=== PATIENT | female | born 1955 | race Caucasian/White ===

== ENCOUNTER 2020-04-16 10:10 | Emergency (ER) | payer MEDICARE, OTHER ==
[~2020-04-16] VITALS: Ht 157.5 cm; Wt 44.5 kg
[2020-04-16] MEDS ORDERED: SODIUM CHLORIDE FLUSH 10ML SYR IVF ONE (10:30)
[2020-04-16 10:44] LABS: BASOPHILS % (AUTO) 1 % (0-1); EOSINOPHILS % (AUTO) 1 % (1-7); LYMPHOCYTES % (AUTO) 23 % (22-44); MEAN CORPUSCULAR HEMOGLOBIN 37.9 pg (27.0-34.8); MEAN CORPUSCULAR HGB CONC 33.7 g/dL (32.4-35.8); MEAN PLATELET VOLUME 7.4 fL (7.4-10.4); MONOCYTES % (AUTO) 12 % (2-9); NEUTROPHILS % (AUTO) 64 % (42-75); PLATELET COUNT 222 x10^3/uL (130-400); RED BLOOD COUNT 3.72 x10^6/uL (3.82-5.3); RED CELL DISTRIBUTION WIDTH 15.8 % (9.6-15.2)
[2020-04-16 10:45] LABS: MD NO
[2020-04-16 10:50] LABS: ALANINE AMINOTRANSFERASE 21 U/L (12-78); ANION GAP 7 mmol/L (5-15); CALCIUM 8.8 mg/dL (8.5-10.1); CHLORIDE 110 mmol/L (98-107); CREATININE 0.55 mg/dL (0.55-1.02)
[2020-04-16 10:53] LABS: ALKALINE PHOSPHATASE 105 U/L (45-117); BILIRUBIN,TOTAL 0.5 mg/dL (0.2-1.0); TOTAL PROTEIN 6.7 g/dL (6.4-8.2)
[2020-04-16] MEDS ORDERED: OMNIPAQUE 350 MG/ML, 100ML BOTTLE ONE (11:38)
[2020-04-16 12:24] VITALS: BP 125/77
[2020-04-16 12:58] LABS: MICROSCOPIC NOT IND
== END 2020-04-16 13:50 | disposition home or self-care (01) ==
LOC: ED 10:35
DX: R10.30 Lower abdominal pain, unspecified (principal); K59.00 Constipation, unspecified
CPT/HCPCS: 36415; 74177; 80053; 81003; 85025; 99285; Q9967

== ENCOUNTER 2020-09-11 11:16 | Outpatient (CLI) | payer MEDICARE ==
[2020-09-11 12:37] LABS: BASOPHILS % (AUTO) 0 % (0-1); EOSINOPHILS % (AUTO) 0 % (1-7); LYMPHOCYTES % (AUTO) 9 % (22-44); MEAN CORPUSCULAR HEMOGLOBIN 34.6 pg (27.0-34.8); MEAN CORPUSCULAR HGB CONC 34.2 g/dL (32.4-35.8); MEAN PLATELET VOLUME 7.1 fL (7.4-10.4); MONOCYTES % (AUTO) 5 % (2-9); NEUTROPHILS % (AUTO) 86 % (42-75); PLATELET COUNT 169 x10^3/uL (130-400); RED BLOOD COUNT 4.39 x10^6/uL (3.82-5.3); RED CELL DISTRIBUTION WIDTH 15.1 % (9.6-15.2)
[2020-09-11 12:38] LABS: MD NO
[2020-09-11 12:46] LABS: ANION GAP 8 mmol/L (5-15); CALCIUM 8.8 mg/dL (8.5-10.1); CHLORIDE 104 mmol/L (98-107); CREATININE 0.48 mg/dL (0.55-1.02)
[2020-09-11 12:52] LABS: INTERNATIONAL NORMALIZED RATIO 1.03 (0.93-1.1)
[2020-09-11] MEDS ORDERED: ESZO2TAB22 PO (12:52)
[2020-09-11] MEDS ORDERED: GABA600T7 PO (12:52)
[2020-09-11] MEDS ORDERED: LEVO50TA5 PO (12:52)
[2020-09-11 12:53] LABS: PARTIAL THROMBOPLASTIN TIME < 23 Seconds (25-31)
== END 2020-09-11 23:59 | disposition home or self-care (01) ==
LOC: STAR 11:16
PROVIDERS: ATTEND Neurological Surgery
DX: Z01.812 Encounter for preprocedural laboratory examination (principal); Z20.822 Contact with and (suspected) exposure to COVID-19; M48.062 Spinal stenosis, lumbar region with neurogenic claudication; I45.10 Unspecified right bundle-branch block
CPT/HCPCS: 36415; 71046; 80048; 85025; 85610; 85730; 93005; U0003

== ENCOUNTER 2020-09-16 07:54 | Emergency (ER) | payer MEDICARE ==
[~2020-09-16] VITALS: Ht 157.5 cm; Wt 55.5 kg
[~2020-09-16 07:54] MED LIST changes: -ADENOSINE 6 MG/2 ML ONE; -DILTIAZEM 5 MG/ML, 5ML ONE
--- NOTE | 2020-09-16 07:54 | NUR ---
MD Jimenez at bedside for eval. HR 184. EKG Done. Pt denies complaint.
[2020-09-16] MEDS ORDERED: ADENOSINE 6 MG/2 ML ONE (07:58)
--- NOTE | 2020-09-16 07:59 | NUR ---
6mg adenosine given
[2020-09-16] MEDS ORDERED: SODIUM CHLORIDE FLUSH 10ML SYR IVF ONE (08:30)
[2020-09-16] MEDS ORDERED: LORazepam 2 MG/ML, 1ML IVPush ONE ×2 (08:30→09:00)
[2020-09-16] MEDS ORDERED: LORazepam 2 MG/ML, 1ML ONE ×3 (08:30→08:50)
[2020-09-16] MEDS ORDERED: ADENOSINE 6 MG/2 ML IVPush ONE (08:30)
[2020-09-16] MEDS ORDERED: PLEASE ENTER HEIGHT AND WEIGHT MC SCH (08:30)
[2020-09-16 08:49] LABS: BASOPHILS % (AUTO) 0 % (0-1); EOSINOPHILS % (AUTO) 1 % (1-7); LYMPHOCYTES % (AUTO) 11 % (22-44); MEAN CORPUSCULAR HEMOGLOBIN 34.3 pg (27.0-34.8); MEAN CORPUSCULAR HGB CONC 33.2 g/dL (32.4-35.8); MONOCYTES % (AUTO) 12 % (2-9); NEUTROPHILS % (AUTO) 75 % (42-75); PLATELET COUNT 117 x10^3/uL (130-400); RED BLOOD COUNT 4.35 x10^6/uL (3.82-5.3); RED CELL DISTRIBUTION WIDTH 15.3 % (9.6-15.2)
[2020-09-16 09:00] LABS: ALBUMIN 3.3 g/dL (3.4-5.0); ANION GAP 6 mmol/L (5-15); CALCIUM 8.4 mg/dL (8.5-10.1); CHLORIDE 111 mmol/L (98-107); CREATININE 0.76 mg/dL (0.55-1.02)
[2020-09-16 09:22] LABS: MD MORPH REVIEW ONLY
[2020-09-16 09:23] LABS: <PLATELET ESTIMATE> DECREASED; <PLT MORPHOLOGY> NORMAL PLT MORPH; ANISOCYTOSIS 1+
[2020-09-16] MEDS ORDERED: MAGNESIUM SULFATE 1 GM in DEXTROSE 5% 100 ML IV ONE (09:30)
--- NOTE | 2020-09-16 09:33 | NUR ---
Bedside report to TONNY Caicedo. Pt placed on 3L NC and CO2 monitoring as she became very lethargic after ativan. Pt arousable to verbal stimuli. remains at bedside.
[2020-09-16] MEDS ORDERED: MAGNESIUM SULFATE/D5W 100 ML ONE (09:35)
--- NOTE | 2020-09-16 09:45 | NUR ---
PT MORE AWAKE NOW, TALKING WITH . SURGERY STAFF CAME DOWN AND NOTIFIED PT THAT SURGERY WILL BE RESCHEDULED FOR ANOTHER DAY.
[2020-09-16 10:30] VITALS: BP 100/60
--- NOTE | 2020-09-16 10:50 | NUR ---
PT UP AND AMBULATING AROUND ROOM/HALLWAY WITHOUT DIFFICULTY. ERP WAS IN FOR RECHECK, ALL QUESTIONS ANSWERED. D/C INSTRUCTIONS & F/U APPT WITH CARDIOLOGY RV'WD WITH PT AND SPOUSE, THEY VERBALIZE UNDERSTANDING. PT AMBULATED OUT OF ED WITH .
== END 2020-09-16 11:10 | disposition home or self-care (01) ==
LOC: ED 09:52
DX: G89.29 Other chronic pain (principal); R55 Syncope and collapse; R42 Dizziness and giddiness; I47.1 Supraventricular tachycardia; E83.42 Hypomagnesemia; E03.9 Hypothyroidism, unspecified; I45.10 Unspecified right bundle-branch block
CPT/HCPCS: 36415; 80048; 82040; 83735; 84443; 85025; 92960; 93005; 96374; 96375; 99284; J0153; J2060; J3475

== ENCOUNTER → 2020-09-16 | Day surgery (SDC) | payer MEDICARE ==
[~2020-09-16] VITALS: Ht 154.9 cm; Wt 54.5 kg
[~2020-09-16] MED LIST: ADENOSINE 6 MG/2 ML ONE; DILTIAZEM 5 MG/ML, 5ML ONE; ESZO2TAB22 PO; GABA600T7 PO; LEVO50TA5 PO
== END | disposition home or self-care (01) ==
LOC: OUT 06:56
PROVIDERS: ATTEND Neurological Surgery
DX: M48.062 Spinal stenosis, lumbar region with neurogenic claudication (principal); Z53.8 Procedure and treatment not carried out for other reasons; Z79.899 Other long term (current) drug therapy
CPT/HCPCS: 93005

== ENCOUNTER 2020-11-24 06:54 | Day surgery (SDC) | payer MEDICARE ==
[~2020-11-24] VITALS: Ht 157.5 cm; Wt 56.8 kg
[2020-11-24] MEDS ORDERED: SODIUM CHLORIDE 0.9% 1,000 ML IV SCH (07:30)
[2020-11-24 07:35] VITALS: BP 128/80
[2020-11-24] MEDS ORDERED: NORT10CA PO (07:42)
[2020-11-24] MEDS ORDERED: CELE200C PO (07:42)
[2020-11-24 07:44] LABS: BASOPHILS % (AUTO) 0 % (0-1); EOSINOPHILS % (AUTO) 5 % (1-7); LYMPHOCYTES % (AUTO) 22 % (22-44); MEAN CORPUSCULAR HEMOGLOBIN 38.4 pg (27.0-34.8); MEAN CORPUSCULAR HGB CONC 34.2 g/dL (32.4-35.8); MEAN PLATELET VOLUME 6.9 fL (7.4-10.4); MONOCYTES % (AUTO) 10 % (2-9); NEUTROPHILS % (AUTO) 63 % (42-75); PLATELET COUNT 222 x10^3/uL (130-400); RED BLOOD COUNT 3.35 x10^6/uL (3.82-5.3)
[2020-11-24] MEDS ORDERED: MIDAZOLAM 1 MG/ML, 2ML ONE (07:51)
[2020-11-24] MEDS ORDERED: ISOPROTERENOL 0.2MG/ML, 5ML ONE (07:51)
[2020-11-24] MEDS ORDERED: LIDOCAINE 1%, 20ML ONE (07:51)
[2020-11-24] MEDS ORDERED: FENTANYL PF 100 MCG/2ML ONE (07:51)
[2020-11-24 07:54] LABS: ALANINE AMINOTRANSFERASE 40 U/L (12-78); ALBUMIN 3.6 g/dL (3.4-5.0); ANION GAP 4 mmol/L (5-15); CALCIUM 8.7 mg/dL (8.5-10.1); CHLORIDE 104 mmol/L (98-107); CREATININE 0.54 mg/dL (0.55-1.02); INTERNATIONAL NORMALIZED RATIO 0.96 (0.93-1.1); PROTHROMBIN TIME 10.3 Seconds (9.6-11.5)
[2020-11-24 07:56] LABS: ALKALINE PHOSPHATASE 93 U/L (45-117); BILIRUBIN,TOTAL 0.6 mg/dL (0.2-1.0)
[2020-11-24] MEDS ORDERED: ADENOSINE 6 MG/2 ML ONE (09:07)
[2020-11-24] MEDS ORDERED: METOPROLOL 1 MG/ML, 5ML ONE ×3 (09:52→10:35)
[2020-11-24] MEDS ORDERED: METOPROLOL 1 MG/ML, 5ML IVPush ONE (10:00)
[2020-11-24] MEDS ORDERED: GABAPENTIN 100 MG CAPSULE PO SCH (16:00)
[2020-11-24] MEDS ORDERED: NORTRIPTYLINE 10 MG CAPSULE PO SCH (21:00)
[2020-11-25] MEDS ORDERED: LEVOTHYROXINE 50 MCG TABLET PO SCH (06:00)
== END 2020-11-24 14:34 | disposition home or self-care (01) ==
LOC: CACL 06:54
PROVIDERS: ATTEND Internal Medicine Cardiovascular Disease
DX: I47.1 Supraventricular tachycardia (principal); I48.91 Unspecified atrial fibrillation; E66.3 Overweight; Z68.22 Body mass index [BMI] 22.0-22.9, adult; Z79.890 Hormone replacement therapy; Z79.899 Other long term (current) drug therapy; Z88.5 Allergy status to narcotic agent
CPT/HCPCS: 36415; 71046; 80053; 85025; 85610; 85730; 93005; 93613; 93621; 93623; 93653; 99156; 99157; C1730; C1766; C1894; C2630; J0153; J2250; J3010